=== PATIENT | female | born 1980 ===

== ENCOUNTER → 2023-05-25 03:32 | Outpatient (CLI) | payer OTHER, SELFPAY ==
--- NOTE | 2023-05-25 | DI.MRI_ITS ---
Exam(s) MR LOWER EXTREMITY RT WO/W EXAM: MR LOWER EXTREMITY RT WO/W CLINICAL HISTORY: LOCALIZED SWELLING,MASS,r22.40,? SOFT TISSUE SARCOMA, F/U ABNL US. TECHNIQUE: Multiplanar multisequence MRI of the right thigh was performed. CONTRAST MATERIAL: IV Contrast: 12 mL of Dotarem contrast administered. COMPARISON: US US EXTREM NON-VASC: LTD UNILAT RIGHT from 05/19/2023 FINDINGS: BONES/JOINTS: No fracture or contusion pattern. No bone lesions identified. There is a small amount o f fluid in the right hip joint space. MUSCULOTENDINOUS STRUCTURES: The muscles show normal signal and size. No muscular fatty atrophy. SOFT TISSUES: There is mild hyperintense signal seen adjacent to the right greater trochanter which m ay represent bursitis. OTHER FINDINGS: There is a 1.1 x 0.4 cm enhancing lesion in the subcutaneous tissues in the anterior thigh corresponding to the areas of skin dimpling. (Series [id number], image 39). This area is hyperinte nse on the T2 weighted images and hypointense on the T1 weighted images. There is a similar but less well defined area laterally in the thigh corresponding to the 2nd area of skin dimpling. This area measures 9 mm x 2 mm. The underlying musculature is unremarkable. IMPRESSION: 1. Two enhancing nodules corresponding to the areas of skin dimpling in the right thigh. The finding s are nonspecific. These may represent subcutaneous lymph nodes or areas of fat necrosis. Biopsy ma y be considered for further evaluation. 2. Right greater trochanteric bursitis. DATA REPOSITORY:
[2023-05-25] MEDS: Gadoterate meglumine 20 ML SYRINGE 12 ML IVP (15:43)
[2023-05-25] MEDS: Normal Saline Flush 10 ML SYR IVP (15:43)
--- NOTE | 2023-05-25 17:00 | DI.VRAD_ITS ---
PROCEDURE INFORMATION: Exam: MR Right Lower Extremity Without and With Contrast, Femur. Exam date and time: 05/25/2023 3:33 PM Age: 43 years old Clinical indication: Other: Dimpling anterior, proximal thigh (area marked); Patient HX: Areas of dimpling marked TECHNIQUE: Imaging protocol: Magnetic resonance imaging of the right lower extremity without and with contrast. Exam focused on the femur. Contrast material: DOTAREM; Contrast volume: 12 ml; Contrast route: INTRAVENOUS (IV); COMPARISON: US EXTREM NON-VASC: LTD UNILAT RIGHT 05/19/2023 10:39 AM FINDINGS: Bones/joints: Marrow signal of the femur is normal. Tendons: Edema present in the proximal hamstring tendon sheath. No tendon tear. Soft tissues: No soft tissue mass or fluid collection. No abnormal enhancement of the soft tissues. No evidence of myositis. The anterior subcutaneous skin dimpling corresponds to small nodules in the subcutaneous fat. Mild peripheral enhancement of the nodules on the postcontrast images. The nodules are centrally hypointense with peripheral hyperintensity. IMPRESSION: 1. The anterior subcutaneous skin dimpling corresponds to small nodules in the subcutaneous fat. Mild peripheral enhancement of the nodules on the postcontrast images. Differential diagnosis includes small foci of fat necrosis and subcutaneous lymph nodesl. Consider FNA biopsy based on clinical concern. 2. Hamstring tendinosis/tendinitis. Dictated and Authenticated by: Mack Barraza MD. Ordering:HARVINDER Bullock MD
== END ==
PROVIDERS: PCP Registered Nurse; Visit Provider Registered Nurse
DX: R22.41 Localized swelling, mass and lump, right lower limb (principal)
CPT/HCPCS: 73720